=== PATIENT | female | born 1950 | race Caucasian/White ===

== ENCOUNTER 2024-03-19 17:25 | Inpatient (IN) | payer MEDICARE, MEDICAID ==
[~2024-03-19] VITALS: Ht 157.5 cm; Wt 68.9 kg
[2024-03-19] VITALS (29 sets, daily range): BP systolic 65–151; BP diastolic 35–98; PULSE 98–129; RESP 16–31; TEMP 97.2–97.9
[2024-03-19] MEDS ORDERED: DOPAMINE 400MG/250ML PREMIX 250 ML IV PRN (19:30)
[2024-03-19 20:46] LABS: BASOPHILS % 0.5 % (0.0-2.0); DIFFERENTIAL COMMENT 0; EOSINOPHILS % 0.4 % (0.0-5.0); HEMATOCRIT. 43.5 % (36.0-48.0); HEMOGLOBIN. 14.9 g/dL (12.0-16.0); MEAN CORPUSCULAR HEMOGLOBIN 35.1 pg (28.0-32.0); MEAN CORPUSCULAR HGB CONC 34.4 g/dL (31.0-37.0); MEAN CORPUSCULAR VOLUME 102.1 fL (81.0-99.0); MEAN PLATELET VOLUME 9.6 fl (7.4-10.4); NEUTROPHILS % 61.1 % (40.0-76.0); PLATELET 261 x1000/uL (130-400); RED BLOOD CELL COUNT 4.26 mill/uL (4.2-5.4); RED CELL DISTRIBUTION WIDTH 13.7 % (11.6-14.6); WHITE BLOOD COUNT 8.9 x1000/uL (4.5-11.0)
[2024-03-19 20:50] LABS: CHLORIDE 108 mEq/L (98-107); POTASSIUM 3.7 mEq/L (3.5-5.1); SODIUM 143 mEq/L (136-145)
[2024-03-19 20:51] LABS: CALCIUM 10.1 mg/dL (8.7-10.4); CARBON DIOXIDE 28 mEq/L (21-32)
[2024-03-19 20:56] LABS: CREATININE 0.4 mg/dL (0.6-1.0); GLUCOSE 96 mg/dL (70-105)
[2024-03-19 20:59] LABS: UREA NITROGEN BLOOD < 5 mg/dL (9-23)
[2024-03-19 21:04] LABS: PROTHROMBIN TIME 10.8 sec (9.6-11.0)
[2024-03-19] MEDS ORDERED: ATROPINE SULFATE 1MG/10ML SYR IV PRN (22:45)
[2024-03-19] MEDS ORDERED: LEVETIRACETAM 1,000 MG in SODIUM CHLORIDE 0.9% 100 ML IV SCH (22:45)
[2024-03-19] MEDS ORDERED: IPRATROPIUM BROMIDE (0.02%) 0.5MG/2.5ML NEB HHN PRN (22:45)
[2024-03-19] MEDS ORDERED: ACETAMINOPHEN 650MG/20.3ML UDC PO PRN (22:45)
[2024-03-19] MEDS ORDERED: ONDANSETRON HCL 4MG TABLET PO PRN (22:45)
[2024-03-20] VITALS (102 sets, daily range): BP systolic 43–157; BP diastolic 36–134; PULSE 47–114; RESP 8–39; TEMP 97.1–100.1
[2024-03-20] MEDS: DEXT 5%/0.45% NACL KCL 20MEQ/L 1,000 ML IV SCH (00:09)
[2024-03-20] MEDS: LEVETIRACETAM 1000MG PREMIX 100 ML IV SCH (00:11)
[2024-03-20] MEDS: NOREPINEPHRINE 8MG/250ML PMX 250 ML IV PRN (00:11)
[2024-03-20 06:25] LABS: HEMATOCRIT 36.8 % (36.0-48.0); HEMOGLOBIN 12.6 g/dL (12.0-16.0); MEAN CORPUSCULAR HEMOGLOBIN 34.7 pg (28.0-32.0); MEAN CORPUSCULAR HGB CONC 34.3 g/dL (31.0-37.0); MEAN CORPUSCULAR VOLUME 101.2 fL (81.0-99.0); PLATELET 260 x1000/uL (130-400); RED BLOOD CELL COUNT 3.64 mill/uL (4.2-5.4); RED CELL DISTRIBUTION WIDTH 13.8 % (11.6-14.6); WHITE BLOOD COUNT 8.1 x1000/uL (4.5-11.0)
[2024-03-20 06:34] LABS: PROTHROMBIN TIME 10.9 sec (9.6-11.0)
[2024-03-20 06:39] LABS: CARBON DIOXIDE 25 mEq/L (21-32); CHLORIDE 110 mEq/L (98-107); POTASSIUM 3.5 mEq/L (3.5-5.1); SODIUM 141 mEq/L (136-145)
[2024-03-20 06:45] LABS: CREATININE 0.4 mg/dL (0.6-1.0); GLUCOSE 126 mg/dL (70-105); UREA NITROGEN BLOOD 6 mg/dL (9-23)
[2024-03-20 06:57] LABS: CALCIUM 9.8 mg/dL (8.7-10.4)
[2024-03-20] MEDS: PANTOPRAZOLE SODIUM 40 MG/VIAL IV SCH (09:00)
[2024-03-20] MEDS: HYDROCORTISONE SOD SUCCINATE 100 MG/2 ML VIAL IV SCH (09:00)
[2024-03-20] MEDS: METHIMAZOLE 5MG TABLET GT SCH (09:00)
[2024-03-20] MEDS ORDERED: DOCUSATE SODIUM 100MG CAPSULE PO PRN (10:30)
[2024-03-20] MEDS ORDERED: ONDANSETRON HCL 4MG/2ML INJ IV PRN (10:30)
[2024-03-20] MEDS ORDERED: CLONIDINE 0.1MG TABLET PO PRN (10:30)
[2024-03-20 13:17] LABS: CREATINE KINASE MB FRACTION 3.2 ng/mL (0.5-3.6); TROPONIN I HIGH SENSITIVITY 17 ng/L (3.0-34)
[2024-03-20 13:18] LABS: CREATINE KINASE 77 IU/L (34-145); PHOSPHORUS 3.2 mg/dL (2.5-4.9)
[2024-03-20] MEDS: THEOPHYLLINE ANHYDROUS 80 MG/15 ML 120ML GT PRN (17:17)
[2024-03-20] MEDS ORDERED: THEOPHYLLINE ANHYDROUS 80 MG/15 ML 120ML PO SCH (18:00)
[2024-03-20 19:13] LABS: CREATINE KINASE MB FRACTION 3.3 ng/mL (0.5-3.6)
[2024-03-21] VITALS (97 sets, daily range): BP systolic 64–149; BP diastolic 44–78; PULSE 51–118; RESP 12–33; TEMP 97.2–99
[2024-03-21 00:09] LABS: CLARITY URINE CLEAR (CLEAR); COLOR URINE YELLOW (YELLOW); GLUCOSE URINE NEGATIVE (NEGATIVE); KETONES URINE NEGATIVE (NEGATIVE); LEUKOCYTE ESTERASE URINE NEGATIVE (NEGATIVE); NITRITE URINE NEGATIVE (NEGATIVE); OCCULT BLOOD URINE NEGATIVE (NEGATIVE); PH URINE 5.5 (4.5-8.0); PROTEIN URINE NEGATIVE (NEGATIVE); SPECIFIC GRAVITY URINE 1.011 (1.005-1.030); UROBILINOGEN URINE 0.2 E.U./dL (0.2-1.0)
[2024-03-21 00:17] LABS: *AMPHETAMINES SCREEN URINE NEGATIVE (NEGATIVE); *BARBITURATES SCREEN URINE NEGATIVE (NEGATIVE); *BENZODIAZEPINES SCREEN URINE NEGATIVE (NEGATIVE); *COCAINE SCREEN URINE NEGATIVE (NEGATIVE); CANNABINOID URINE SCREEN NEGATIVE (NEGATIVE); ECSTASY MDMA SCREEN URINE NEGATIVE (NEGATIVE); METHADONE URINE SCREEN NEGATIVE (NEGATIVE); OPIATES URINE SCREEN NEGATIVE (NEGATIVE); PHENCYCLIDINE URINE SCREEN NEGATIVE (NEGATIVE)
[2024-03-21 05:48] LABS: BASOPHILS % 0.3 % (0.0-2.0); DIFFERENTIAL COMMENT 0; EOSINOPHILS % 0.6 % (0.0-5.0); HEMATOCRIT. 34.6 % (36.0-48.0); HEMOGLOBIN. 11.9 g/dL (12.0-16.0); LYMPHOCYTES % 39.5 % (20.0-50.0); MEAN CORPUSCULAR HEMOGLOBIN 34.7 pg (28.0-32.0); MEAN CORPUSCULAR HGB CONC 34.2 g/dL (31.0-37.0); MEAN CORPUSCULAR VOLUME 101.3 fL (81.0-99.0); MEAN PLATELET VOLUME 9.9 fl (7.4-10.4); MONOCYTES % 9.9 % (2.0-8.0); NEUTROPHILS % 49.7 % (40.0-76.0); PLATELET 242 x1000/uL (130-400); RED BLOOD CELL COUNT 3.42 mill/uL (4.2-5.4); RED CELL DISTRIBUTION WIDTH 13.6 % (11.6-14.6)
[2024-03-21 05:52] LABS: CARBON DIOXIDE 25 mEq/L (21-32); CHLORIDE 110 mEq/L (98-107); POTASSIUM 3.5 mEq/L (3.5-5.1); SODIUM 143 mEq/L (136-145)
[2024-03-21 05:53] LABS: CALCIUM 9.3 mg/dL (8.7-10.4)
[2024-03-21 05:58] LABS: CREATININE 0.5 mg/dL (0.6-1.0); GLUCOSE 129 mg/dL (70-105); TRIGLYCERIDE 58 mg/dL (0-150)
[2024-03-21 05:59] LABS: LDL CHOLESTEROL 73 mg/dL (5-100)
[2024-03-21 06:00] LABS: CHOLESTEROL 130 mg/dL (<200); HDL CHOLESTEROL 45 mg/dL (>65); T4 FREE 1.83 ng/dL (0.89-1.76); THYROID STIMULATING HORMONE < 0.10 uIU/mL (0.55-4.78)
[2024-03-21 06:01] LABS: UREA NITROGEN BLOOD < 5 mg/dL (9-23)
[2024-03-21] MEDS ORDERED: THEOPHYLLINE ANHYDROUS 80 MG/15 ML 120ML GT SCH (09:00)
[2024-03-21] MEDS: DIPHENHYDRAMINE 50MG/ML VIAL IV PRN (09:25)
[2024-03-21] MEDS: THEOPHYLLINE ANHYDROUS 80 MG/15 ML 120ML GT SCH (10:25)
[2024-03-21] MEDS: ENOXAPARIN 40MG/0.4ML SYR SUBCUT SCH (17:41)
[2024-03-22] VITALS (47 sets, daily range): BP systolic 96–171; BP diastolic 52–156; PULSE 64–110; RESP 17–35; TEMP 97–99.2
[2024-03-22 05:58] LABS: BASOPHILS % 0.7 % (0.0-2.0); DIFFERENTIAL COMMENT 0; EOSINOPHILS % 0.3 % (0.0-5.0); HEMATOCRIT. 36.8 % (36.0-48.0); HEMOGLOBIN. 12.3 g/dL (12.0-16.0); LYMPHOCYTES % 27.4 % (20.0-50.0); MEAN CORPUSCULAR HEMOGLOBIN 34.2 pg (28.0-32.0); MEAN CORPUSCULAR HGB CONC 33.5 g/dL (31.0-37.0); MEAN CORPUSCULAR VOLUME 102.2 fL (81.0-99.0); MEAN PLATELET VOLUME 10.6 fl (7.4-10.4); MONOCYTES % 7.9 % (2.0-8.0); NEUTROPHILS % 63.7 % (40.0-76.0); PLATELET 247 x1000/uL (130-400); RED CELL DISTRIBUTION WIDTH 13.8 % (11.6-14.6); WHITE BLOOD COUNT 9.3 x1000/uL (4.5-11.0)
[2024-03-22 06:01] LABS: CHLORIDE 109 mEq/L (98-107); POTASSIUM 3.5 mEq/L (3.5-5.1); SODIUM 142 mEq/L (136-145)
[2024-03-22 06:04] LABS: CARBON DIOXIDE 25 mEq/L (21-32)
[2024-03-22 06:05] LABS: CREATININE 0.5 mg/dL (0.6-1.0); GLUCOSE 110 mg/dL (70-105)
[2024-03-22 06:06] LABS: ALBUMIN 3.9 g/dL (3.2-4.8)
[2024-03-22 06:07] LABS: ALANINE AMINOTRANSFERASE 16 IU/L (10-49); ASPARTATE AMINOTRANSFERASE 17 IU/L (<34); PHOSPHORUS 2.3 mg/dL (2.5-4.9); PROTEIN TOTAL 6.6 g/dL (6.0-8.3)
[2024-03-22 06:08] LABS: FOLIC ACID (FOLATE) SERUM 19.35 ng/mL (>5.38)
[2024-03-22 06:09] LABS: UREA NITROGEN BLOOD < 5 mg/dL (9-23); VITAMIN B12 SERUM 1877 pg/mL (211-911)
[2024-03-22] MEDS: LEVETIRACETAM 1,000 MG in SODIUM CHLORIDE 0.9% 100 ML IV SCH (09:16)
[2024-03-22] MEDS: POTASSIUM PHOSPHATE 15 MMOL in DEXT 5% WATER 245 ML IV SCH (09:16)
[2024-03-23] VITALS (60 sets, daily range): BP systolic 97–153; BP diastolic 53–129; PULSE 73–119; RESP 16–31; TEMP 98.6–99.9
[2024-03-23 06:14] LABS: HEMOGLOBIN 12.1 g/dL (12.0-16.0); MEAN CORPUSCULAR HEMOGLOBIN 34.7 pg (28.0-32.0); MEAN CORPUSCULAR HGB CONC 34.6 g/dL (31.0-37.0); MEAN CORPUSCULAR VOLUME 100.3 fL (81.0-99.0); PLATELET 245 x1000/uL (130-400); RED BLOOD CELL COUNT 3.49 mill/uL (4.2-5.4); WHITE BLOOD COUNT 10.6 x1000/uL (4.5-11.0)
[2024-03-23 06:23] LABS: CARBON DIOXIDE 25 mEq/L (21-32); CHLORIDE 108 mEq/L (98-107); POTASSIUM 3.2 mEq/L (3.5-5.1); SODIUM 142 mEq/L (136-145)
[2024-03-23 06:29] LABS: GLUCOSE 131 mg/dL (70-105)
[2024-03-23 06:31] LABS: PHOSPHORUS 3.2 mg/dL (2.5-4.9)
[2024-03-23 06:46] LABS: CREATININE 0.3 mg/dL (0.6-1.0); UREA NITROGEN BLOOD < 5 mg/dL (9-23)
[2024-03-23 07:16] LABS: CALCIUM 9.3 mg/dL (8.7-10.4)
[2024-03-23] MEDS: POTASSIUM CHLORIDE 20MEQ/PACKET PEG NR (08:51)
[2024-03-23] MEDS: HYDROCORTISONE 10MG TABLET PEG SCH ×2 (09:54→21:19)
[2024-03-23] MEDS: LEVETIRACETAM 1000MG PREMIX 100 ML IV SCH (21:19)
[2024-03-23] MEDS: FAMOTIDINE 20MG TABLET PEG SCH (21:19)
[2024-03-24] VITALS (11 sets, daily range): BP systolic 103–143; BP diastolic 66–81; PULSE 80–100; RESP 15–22; TEMP 99.7
[2024-03-24 07:32] LABS: CHLORIDE 108 mEq/L (98-107); POTASSIUM 3.5 mEq/L (3.5-5.1); SODIUM 143 mEq/L (136-145)
[2024-03-24 07:33] LABS: CALCIUM 10.1 mg/dL (8.7-10.4); CARBON DIOXIDE 26 mEq/L (21-32)
[2024-03-24 07:38] LABS: GLUCOSE 128 mg/dL (70-105); UREA NITROGEN BLOOD 8 mg/dL (9-23)
[2024-03-24 09:55] LABS: CREATININE 0.5 mg/dL (0.6-1.0)
[2024-03-24] MEDS: POTASSIUM CHLORIDE 20MEQ/PACKET PEG NR (09:55)
[2024-03-24] MEDS: LEVETIRACETAM 500MG/5ML CUP GT SCH (09:55)
[2024-03-24] MEDS ORDERED: HYDR-4379 PEG ×2 (10:33)
[2024-03-24] MEDS ORDERED: KEPPSOL GT (10:33)
[2024-03-24] MEDS ORDERED: METH-371 GT (10:33)
[2024-03-24] MEDS ORDERED: THEOL GT (10:33)
[2024-03-25] VITALS (7 sets, daily range): BP systolic 89–131; BP diastolic 53–83; PULSE 61–99; RESP 14–23; TEMP 98–99.4
[2024-03-25] MEDS: LACTULOSE 20G/30ML UDC PO NR (11:51)
[2024-03-25] MEDS: LACTULOSE 20G/30ML UDC PEG SCH (17:17)
[2024-03-26] VITALS: BP 120/82; PULSE 78; RESP 19; TEMP 98.9
[2024-03-26 04:00] VITALS: BP 120/88; PULSE 73; RESP 18; TEMP 97
[2024-03-26 04:07] VITALS: BP 113/66; PULSE 79; RESP 18; TEMP 97.3
[2024-03-26 08:00] VITALS: BP 123/72; PULSE 82; RESP 18; TEMP 97.7
[2024-03-26 12:00] VITALS: BP 92/39; PULSE 75; RESP 18; TEMP 97
[2024-03-26 16:00] VITALS: BP 129/72; PULSE 52; RESP 18; TEMP 97.4
== END 2024-03-26 19:10 | DRG 308 ==
LOC: CVICU 19:08 → 3WST 03-23 22:20 → 6WST 03-25 22:53
PROVIDERS: ADMIT Internal Medicine Nephrology; ATTEND Internal Medicine Nephrology
DX: R00.1 Bradycardia, unspecified (principal); E43 Unspecified severe protein-calorie malnutrition; G93.41 Metabolic encephalopathy; R57.0 Cardiogenic shock; E27.40 Unspecified adrenocortical insufficiency; Z68.27 Body mass index [BMI] 27.0-27.9, adult; D53.9 Nutritional anemia, unspecified; E05.00 Thyrotoxicosis with diffuse goiter without thyrotoxic crisis or storm; G80.9 Cerebral palsy, unspecified; R13.10 Dysphagia, unspecified; R56.9 Unspecified convulsions; Z86.73 Personal history of transient ischemic attack (TIA), and cerebral infarction without residual deficits
CPT/HCPCS: 36415; 74018; 80048; 80053; 80061; 80305; 81003; 82550; 82553; 82607; 82746; 82962; 83605; 83735; 84100; 84145; 84439; 84443; 84484; 85025; 85027; 85379; 93005; 93970; C9113; J1200; J1650; J1720; J1953; J3490; J7050; J7060